=== PATIENT | female | born 1950 | race Caucasian/White ===

== ENCOUNTER 2018-06-26 09:24 | Day surgery (SDC) | payer OTHER, BC ==
[2018-06-19 19:13] VITALS: BMI 29.1
[2018-06-26] MEDS ORDERED: MIDAZOLAM HCL 2 MG/2 ML SINGLE DOSE VIAL ONE (12:31)
[2018-06-26] MEDS ORDERED: BUPIVACAINE HCL/PF 2.5 MG/ML - 30 ML VIAL IJ ONE (12:58)
[2018-06-26] MEDS ORDERED: ONDANSETRON 4 MG/2 ML VIAL ONE (13:17)
[2018-06-26] MEDS ORDERED: ceFAZolin SODIUM 1 GM VIAL ONE (13:26)
[2018-06-26] MEDS ORDERED: KETOROLAC TROMETHAMINE 30 MG/1 ML VIAL ONE (13:50)
[2018-06-26] MEDS ORDERED: ACETAMINOPHEN INJECTION 100 ML IVPB ONE (13:54)
[2018-06-26 14:52] VITALS: TEMP 97.7
[2018-06-26] MEDS ORDERED: ONDANSETRON 4 MG/2 ML VIAL IVPUSH PRN (15:26)
[2018-06-26] MEDS ORDERED: LACTATED RINGERS SOLUTION 1,000 ML IV SCH (15:30)
[2018-06-26 16:28] VITALS: BP 98/52; PULSE 72
--- NOTE | 2018-06-27 09:06 | OP ---
DATE OF OPERATION: 06/26/2018 PREOPERATIVE DIAGNOSIS: Right knee medial meniscal tear. POSTOPERATIVE DIAGNOSIS: Right knee medial and lateral meniscal tears. PROCEDURE: Right knee arthroscopy with partial medial, partial lateral meniscectomies. SURGEON: Yolande Castillo MD BASKET MACHINE OPERATOR: Gisela Treviño ANESTHESIA: Spinal. POSTOPERATIVE CONDITION: Stable. COMPLICATIONS: None. INDICATIONS: This is a pleasant 68-year-old female who has been having persistent knee pain. MRI demonstrated meniscal tear. Treatment options including nonoperative versus operative management were reviewed. Operative risks were reviewed in detail including bleeding, infection, neurovascular injury, need for further surgery, postoperative pain and stiffness, and progression of osteoarthritis. We discussed medical risks such as heart attack, stroke, DVT, PE, and . I addressed the patients questions and concerns. She voiced understanding. She elected to proceed. DESCRIPTION OF PROCEDURE: The patient was brought to the operating room where she was given spinal anesthetic. The right lower extremity was then prepped and draped in the usual sterile fashion. A preoperative dose of antibiotics was given, and the usual time-out procedure was performed. The portals were then marked out on the skin. They were injected subcutaneously with 0.25% Marcaine. An 11 blade was now used to establish the lateral portal. The arthroscope was passed into the patellofemoral joint. There was partial-thickness cartilage loss along the patella surface. There was minimal trochlear streaking. Passing the arthroscope into the notch demonstrated intact ACL and PCL. Passing the arthroscope into the medial compartment demonstrated moderate to diffuse partial-thickness chondral loss. This was along the femoral and tibial sides. There was tearing noted along the undersurface of the posterior horn of the medial meniscus. Utilizing upbiter as well as melvi, this was debrided down to a stable base. Passing the arthroscope into the lateral compartment demonstrated a similar phenomenon. There was mild articular wear in this compartment. There was undersurface tearing as well as interim tearing of the meniscus. Utilizing the meniscus biter as well as a shaver, this too was debrided down to a stable base. At this point, the excess fluid was withdrawn from the joint. The portals were sutured using 3-0 nylon. Sterile dressings were placed. The patient was transferred to the recovery room in stable condition. YOLANDE CASTILLO M.D. [id number]
== END 2018-06-26 16:42 | disposition home or self-care (01) ==
LOC: FASU 09:24
PROVIDERS: ATTEND Orthopaedic Surgery Sports Medicine
PROC: 0SBC4ZZ Excision of Right Knee Joint, Percutaneous Endoscopic Approach (ICD-10-PCS; 2018-06-26)
PROC: 0SBC4ZZ Excision of Right Knee Joint, Percutaneous Endoscopic Approach (ICD-10-PCS; principal; 2018-06-26 13:34)
DX: S83.282A Other tear of lateral meniscus, current injury, left knee, initial encounter (principal); S83.242A Other tear of medial meniscus, current injury, left knee, initial encounter
CPT/HCPCS: 82962; 94760; J0131